=== PATIENT | female | born 1995 | race Caucasian/White ===

== ENCOUNTER → 2017-03-09 | Outpatient (CLI) | payer BC ==
[~2017-03-09] MED LIST: CIPRO500 MG PO; ORTHO TRI-CYCLE1 TAB PO; PAXIL 10MG10 MG PO; PYRIDIUM200 M1 PO
== END ==
LOC: BHSO 09:22
DX: F90.0 Attention-deficit hyperactivity disorder, predominantly inattentive type (principal)